=== PATIENT | male | born 1975 | race Hispanic/Latino ===

== ENCOUNTER 2018-10-27 10:56 | Inpatient (IN) | payer OTHER ==
[~2018-10-27] VITALS: Ht 165.1 cm; Wt 175.2 kg
--- NOTE | 2018-10-27 11:01 | NUR ---
WHEELCHAIR TO ER ROOM 13, TO BED. BEDSIDE TRIAGE DONE
[2018-10-27] MEDS ORDERED: METFORMIN HCL1000 MG PO (11:12)
[2018-10-27] MEDS ORDERED: LISINOPRIL10 M1 PO (11:13)
[2018-10-27] MEDS ORDERED: SM ASPIRIN ADUL81 MG PO (11:13)
[2018-10-27] MEDS ORDERED: TRADJENTA5 MG PO (11:15)
[2018-10-27 11:33] LABS: HEMATOCRIT 43.1 % (39.0-50.0); HEMOGLOBIN 13.8 g/dl (14.0-18.0); IMMATURE GRANULOCYTES 0.7 % (0.0-5.0); MEAN CELL VOLUME 85.5 fL CALC (80.0-100.0); MEAN CORPUSCULAR HGB 27.4 pG CALC (26.0-32.0); NEUT# 12.27 thou/uL (1.82-7.42); RED BLOOD COUNT 5.04 mill/uL (4.70-6.10); RED CELL DISTRI WIDTH 13.4 % (11.5-15.5)
[2018-10-27 11:44] LABS: ALKALINE PHOSPHATASE 105 u/l (38-126); ANION GAP 16 (6-22 (CALC)); BILIRUBIN, TOTAL 0.6 mg/dL (0.0-1.4); BUN 19 mg/dL (9-20); BUN/CREATININE RATIO 24 (12-20 (CALC)); CARBON DIOXIDE 27 mmol/l (22-30); CHLORIDE 96 mmol/l (95-108); CREATININE 0.8 mg/dL (0.7-1.3); GFR > 60 ML/MIN (>=60 (CALC)); GFR FOR AFR.AMER. > 60 ML/MIN (>=60 (CALC)); POTASSIUM 3.9 mmol/l (3.5-5.1); SGOT/AST 42 u/l (17-59); SODIUM 136 mmol/l (137-146); TOTAL PROTEIN 8.2 g/dL (6.3-8.2)
--- NOTE | 2018-10-27 11:49 | NUR ---
TEMP RECHECK 104.0 TYMPANIC ENVIRONMENTAL MEASURES IN PROGRESS. IV TYLENOL COMPLETED.IV ABT AND FLUIDS IN PROGRESS. BP 164/72. PT TACHYCARDIC. SATS 98% ON 4L/M VIA NC. RESP EVEN/UNLABORED. PT A&OX3. SKIN MOIST.
--- NOTE | 2018-10-27 13:02 | NUR ---
SECOND LACTIC OBTAINED
--- NOTE | 2018-10-27 14:20 | NUR ---
URINE SPECIMEN COLLECTED. PT ABLE TO STAND AND USE URINAL. PT A&OX3 02 TAPERED TO 2L/M VIA NC. PT SATS 98%. NO SOB DURING ADL. TEMP TRENDING DOWN. VSS.
[2018-10-27 14:37] LABS: URINE BILIRUBIN - DIPSTICK NEGATIVE (NEGATIVE); URINE BLOOD DIPSTICK NEGATIVE (NEGATIVE); URINE COLOR YELLOW; URINE GLUCOSE - DIPSTICK NEGATIVE (NEGATIVE); URINE KETONE NEGATIVE (NEGATIVE); URINE LEUK ESTERASE NEGATIVE (NEGATIVE); URINE NITRITE - DIPSTICK NEGATIVE (Negative); URINE PROTEIN - DIPSTICK 30 mg/dL (NEG-TRACE); URINE SPECIFIC GRAVITY <=1.005
[2018-10-27 14:40] LABS: BARBITURATES NEGATIVE (NEGATIVE); COCAINE NEGATIVE (NEGATIVE); METHADONE NEGATIVE (NEGATIVE); OXCYCODONE NEGATIVE (NEGATIVE); TETRAHYDROCANNABIONOL NEGATIVE (NEGATIVE); TRICYLIC ANTIDEPRESSANTS NEGATIVE (NEGATIVE)
[2018-10-27 14:50] LABS: URINE SQUAMOUS EPITHELIAL CELL FEW EPI/hpf (0-FEW)
--- NOTE | 2018-10-27 15:40 | NUR ---
PT RESTING ON STRETCHER. ALL FLUIDS COMPLETED. PT CONTINUES ON O2 2L/M VIA NC. PT AWARE OF CURRENT POC.
--- NOTE | 2018-10-27 16:42 | NUR ---
REPORT CALLED TO MIRLANDE NURSE ON MEDSURG. PT TO MEDSURG VIA STRETCHER IN NO APPARENT DISTRESS. IV SITES HEALTHY. AFEBRILE. O2 2L/M VIA NC.
--- NOTE | 2018-10-27 16:50 | NUR ---
PT ARRIVED TO MS2 VIA STRETCHER ACCOMPANIED BY ER NURSE AND SISTERS. PT ALERT AND ORIENTED X3, AMBULATED WITH STEADY GAIT TO BED. BP ELEVATED AT THIS TIME, 186/117 TEMP 100.9 AND ACCUCHECK 200. PT RECEIVED IV CONTRAST, PT NIDDM METFORMIN TO BE HELD. ORIENTED PT TO ROOM AND CALL LIGHT, DISCUSSED POC. MD AND AUTO PORTER TO BEDSIDE UPON ARRIVAL. DISCUSSED POC, MD NOTED PT HAS REDNESS AND SWELLING TO L LEG;HOT TO TOUCH, PHOTO OBTAINED CIRCUMFERENCE OF CALF 40CM. DISCUSSED PRN APRESOLINE; CT AND U/S ORDERED. ASSESSMENT COMPLETED, CALL LIGHT IN REACH,CONTINUE TO MONITOR.
[2018-10-27 17:04] VITALS: BP 186/117
[2018-10-27 18:00] VITALS: BP 202/110
--- NOTE | 2018-10-27 18:14 | NUR ---
PT SITTING ON SIDE OF BED RN TO BEDSIDE TO GIVE IV APRESOLINE FOR BP 202/110. MEDICATED WITH TYLENOL WELL, PT VOICES NO NEEDS OR COMPLAINTS AT THIS TIME. CALL LIGHT IN REACH,CONTINUE TO MONITOR.
[2018-10-27 18:51] VITALS: BP 149/90
--- NOTE | 2018-10-27 18:51 | NUR ---
VITALS OBTAINED, TEMP NOW 102. PASSED ON TO ON COMING SHIFT. RN REQUESTS PT HAVE ICE PACKS PLACED AND WILL REEVALUATE, TO NOTIFY MD FOR MORE ORDERS IF NECESSARY.
--- NOTE | 2018-10-27 20:15 | NUR ---
ASSESSMENT COMPLETED; IV SITE PATENT AND SL. PT. DENIES ANY PAIN. LLE WITH REDNESS NOTED AND IS OUTLINED WITH MARKER; WARM TO TOUCH; TEMP 102.[address]S IN PLACE. CALLED AND NOTIFIED DR. HILLS OF TEMP AND OF LAST DOSE OF TYLENOL; ORDER RECEIVED TO GIVE ADDITIONAL DOSE OF TYLENOL IN ONE HOUR AND CONTINUE WITH COLD/ICE PACKS ; PER MD HE DOES NOT WANT TO ORDER ANY NSAIDS R/T KIDNEY FUNCTION. WILL CARRY OUT THESES ORDERS. CALL LIGHT IS IN REACH.
--- NOTE | 2018-10-27 21:40 | NUR ---
CALLED AND SPOKE TO X-RAY TECHGRETEL, IF CT OF LLE WILL GET TONIGHT AND PER HIM HE REPORTS HE WAS TOLD TO DO THIS IN AM.
--- NOTE | 2018-10-27 22:30 | NUR ---
PT. RESTING IN BED ON LEFT SIDE. TEMP DOWN TO 101, ICE PACKS REFILLED AND ROOM TEMP IS COOL; PT. GIVEN INCENTIVE SPIROMETER EARLIER IN SHIFT AND PULLING 1999; GOAL SET TO 2500; INSTRUCTED TO USE 10X'S AN HOUR WHILE AWAKE AND VERBALIZED UNDERSTANDING. SCHED VANCO HUNG AT THIS TIME. ENCOURAGED TO CALL FOR ANY NEEDS. CALL LIGHT IS IN REACH. WILL CONTINUE TO MONITOR.
[2018-10-27 23:53] VITALS: BP 139/81
--- NOTE | 2018-10-27 23:53 | NUR ---
PT. RESTING IN BED ON LEFT SIDE WITH NO DISTRESS NOTED; DENIES NEEDS/PAIN.VS OBTAINED; TEMP NOW 100.3; WILL CONTINUE TO MONITOR. CALL LIGHT IS IN REACH.
[2018-10-28] VITALS (7 sets, daily range): BP systolic 122–200; BP diastolic 77–108
--- NOTE | 2018-10-28 01:00 | NUR ---
MEDICATED FOR FEVER OF 100.7 WITH PRN TYLENOL AND NEW COOL PACKS APPLIED. CALL LIGHT IS IN REACH.
--- NOTE | 2018-10-28 04:01 | NUR ---
B/P 200/98 MANUALLY; MEDICATED WITH ORDERED APRESOLINE; WILL REASSESS; RE COOLED WASHCLOTH TO FOREHEAD FOR FEVER AND ICE PACKS IN PLACE.
--- NOTE | 2018-10-28 05:17 | NUR ---
PT. MEDICATED WITH ORDERED TYLENOL FOR TEMP OF 101.8; NEW ICE PACKS APPLIED; B/P NOW 195/; WILL CONTINUE TO MONITOR.
[2018-10-28 05:28] LABS: HEMOGLOBIN 13.6 g/dl (14.0-18.0); IMMATURE GRANULOCYTES 0.4 % (0.0-5.0); MEAN CELL VOLUME 86.3 fL CALC (80.0-100.0); MEAN CORPUSCULAR HGB 27.3 pG CALC (26.0-32.0); MEAN CORPUSCULAR HGB CONC 31.6 g/L CALC (32.0-36.0); NEUT# 8.02 thou/uL (1.82-7.42); RED BLOOD COUNT 4.98 mill/uL (4.70-6.10); RED CELL DISTRI WIDTH 13.6 % (11.5-15.5)
[2018-10-28 05:48] LABS: ALBUMIN 3.6 g/dL (3.2-5.0); ALKALINE PHOSPHATASE 85 u/l (38-126); AMYLASE 51 u/l (30-110); ANION GAP 15 (6-22 (CALC)); BILIRUBIN, TOTAL 0.6 mg/dL (0.0-1.4); BUN 11 mg/dL (9-20); BUN/CREATININE RATIO 17 (12-20 (CALC)); CARBON DIOXIDE 28 mmol/l (22-30); CHLORIDE 97 mmol/l (95-108); CREATININE 0.6 mg/dL (0.7-1.3); GFR > 60 ML/MIN (>=60 (CALC)); GFR FOR AFR.AMER. > 60 ML/MIN (>=60 (CALC)); LIPASE 112 u/l (23-300); MAGNESIUM 1.2 mg/dL (1.6-2.3); POTASSIUM 3.5 mmol/l (3.5-5.1); SGOT/AST 51 u/l (17-59); SODIUM 136 mmol/l (137-146); TOTAL PROTEIN 7.4 g/dL (6.3-8.2)
--- NOTE | 2018-10-28 06:26 | NUR ---
REASSESSED TEMP AND NOW IS 100.7; REASSESSED B/P AND NOW 176/100, MEDICATED WITH AM LISNOPRIL; PT. DENIES NEEDS. RE-COOLED WASH CLOTH AND ICE PACKS REMAIN IN PLACE.
--- NOTE | 2018-10-28 07:20 | NUR ---
RECEIVED PT IN LOW FOWLERS POSITION, AWAKE. ALERT. ASSESSMENT COMPLETE, SEE SHIFT REVIEW FOR COMPLETE ASSESSMENT. PT TACHYCARDIC/TACHYPNEIC TEMP 102.4. COLD COMPRESSES IN PLACE. PT DENIES ANY PAIN. LEFT LOWER EXTREMITY REDNESS REMAINS WITHOUT INCREASE BEYOND MARKINGS. DISCUSSED PLAN OF CARE. WILL CONTINUE TO MONITOR FREQUENTLY.
--- NOTE | 2018-10-28 08:41 | NUR ---
PT SITTIN ON SIDE OF BED EATING BREAKFAST. DENIES ANY NEEDS. TYLENOL GIVEN FOR TEMP OF 102.4.
--- NOTE | 2018-10-28 09:30 | NUR ---
PT TO XRAY DEPARTMENT VIA WHEELCHAIR.
--- NOTE | 2018-10-28 09:45 | NUR ---
PT RETURNED FROM XRAY DEPT, TOLERATED WELL. TEMP DOWN TO 100.4
--- NOTE | 2018-10-28 09:51 | NUR ---
PRELIMINARY BLOOD CULTURE RESULTS GRAM (+) [facility] CALLED TO , PATIENT IS ALREADY ON VANCOMYCIN 2 GRAMS Q12H NO NEW ORDERS AT THIS TIME.
--- NOTE | 2018-10-28 09:56 | NUR ---
DR HILLS IN, NOTIFIED OF BLOOD CULTURE RESULTS.
--- NOTE | 2018-10-28 11:21 | NUR ---
DR HILLS AT PTS BEDSIDE. DISCUSSED PLAN OF CARE. NEW AREA OF REDNESS NOTED EXTENDING UP TO RIGHT MEDIAL THIGH WHERE PT REPORT PAIN. NEW ORDERS RECEIVED.
--- NOTE | 2018-10-28 12:57 | NUR ---
S: RULA ANN is a 42 M who presents with Left Lower Leg Cellulitis, Comunity Acquired Pneumonia, and Sepsis. He has a history of hypertension and Type 2 Diabetes. All medications in patient's chart were reviewed. O: VS: BP 171/94 mmHg, P 116 BPM, RR 24 Breaths Per Minute,T 101.5 Degrees Fahrenheit W 175.2 kg, HT 65 in, Scr=0.6 mg/dL,CrCl= 245ml/min A: Blood culture pending. P: Vancomycin ordered for pharmacy to dose. Start Vancomycin 2g IV Q12H. Vancomycin trough is drawn before the 4th dose on <10/29/2018 at 1030 >. Vancomycin goal trough is between <15-20 mcg/ml>. Pharmacy will follow and or advise on antibiotics use as needed.
--- NOTE | 2018-10-28 13:31 | NUR ---
PT TO XRAY VIA WHEELCHAIR.
--- NOTE | 2018-10-28 14:00 | NUR ---
PT RETURNED FROM CT.
--- NOTE | 2018-10-28 14:52 | NUR ---
PT COMPLAINTS OF FEELING "COLD" TEMP CHECKED, RESULTS 104.1 DR HILLS NOTIFIED AND NEW ORDERS RECEIVED.
--- NOTE | 2018-10-28 16:00 | NUR ---
TEMP DOWN TO 101.2, PT SWEATING. DENIES ANY NEEDS. WILL CONTINUE TO MONITOR.
--- NOTE | 2018-10-28 19:45 | NUR ---
PT. RESTING IN BED WITH NO DISTRESS NOTED; DENIES NEEDS/PAIN. ASSESSMENT COMPLETED; IV SITE PATENT AND SL X2. ENCOURAGED USE OF INCENTIVE SPIROMETER; VERBALIZES UNDERSTANDING. REDNESS TO LLE NOTED AND OUTLINE; CIRCUMFERENCE OF LLE IS 41CM; PULSES PRESENT TO ALL EXTREMETIES; ENCOURAGED TO CALL FOR ANY NEEDS. CALL LIGHT IS IN REACH; WILL CONTINUE TO MONITOR.
--- NOTE | 2018-10-28 23:10 | NUR ---
PT. RESTING IN BED WITH EYES CLOSED; AROUSES EASILY; VSS; NO DISTRESS NOTED; ENCOURAGED TO CALL FOR ANY NEEDS. CALL LIGHT IS IN REACH.
--- NOTE | 2018-10-29 00:55 | NUR ---
IV SITE PATENT AND FLUSHED WITH NS. TEMP 98.6; WILL CONTINUE TO MONITOR. PT. DENIES NEEDS; CALL LIGHT IS IN REACH.
[2018-10-29 04:00] VITALS: BP 210/106
--- NOTE | 2018-10-29 04:01 | NUR ---
TEMP NOW 103.5 AND B/P 210/106 MANUALLY; MEDICATED WITH ORDERED TYLENOL,MOTRIN, AND APRESOLINE. PT'S BREATHING IS SHALLOW AND PANTING LIKE; ENCOURAGED TO DEEP BREATHE SPO2 IS 87%; O2 INCREASED TO 3LITERS/MIN PER NC AND SPO2 UP TO 92%; WILL CONTINUE TO MONITOR. COOL PACKS APPLIED THROUGHOUT BODY WELL. CALL LIGHT IS IN REACH. WILL REASSESS VS.
--- NOTE | 2018-10-29 04:38 | NUR ---
CALLED AND SPOKE TO DR. PITTMAN TO SEE FOR ORDERS FOR PT. PER MD HE FEELS PRIMARY MD SHOULD BE NOTIFIED AND CALLED FOR ORDERS R/T PT. HAVING NUMEROUS THINGS GOING ON.
--- NOTE | 2018-10-29 04:40 | NUR ---
CALLED AND SPOKE TO DR. HILLS NOTIFIED HIM OF ALL PT'S VS WELL RR BEING 40'S-50'S AT THIS TIME AND THAT PT. IS ANXIOUS. ALSO NOTIFIED HIM OF ALL MEDICATIONS GIVEN THUS FAR; ALSO OF O2 BEING INCREASED TO 3LITERS/MIN PER NC. NEW ORDERS RECIEVED FOR ATIVAN X1 DOSE AND TO BE CARRIED OUT.
[2018-10-29 05:20] VITALS: BP 146/89
--- NOTE | 2018-10-29 05:20 | NUR ---
REASSESSED TEMP AND NOW IS 102.7, BREATHING IS SLIGHTLY SLOWER AND REPORTS IT IS A LITTLE EASIER TO BREATHE POST ATIVAN ADMINISTRATION. B/P REASSESSED AND NOW 146/89. PT. ASSISTED INTO SHOWER AND LINENS CHANGED. WILL CONTINUE TO MONITOR.
[2018-10-29 05:22] LABS: HEMATOCRIT 46.3 % (39.0-50.0); HEMOGLOBIN 14.6 g/dl (14.0-18.0); IMMATURE GRANULOCYTES 0.9 % (0.0-5.0); MEAN CELL VOLUME 85.9 fL CALC (80.0-100.0); MEAN CORPUSCULAR HGB 27.1 pG CALC (26.0-32.0); MEAN CORPUSCULAR HGB CONC 31.5 g/L CALC (32.0-36.0); NEUT# 13.39 thou/uL (1.82-7.42); RED BLOOD COUNT 5.39 mill/uL (4.70-6.10); RED CELL DISTRI WIDTH 13.7 % (11.5-15.5)
[2018-10-29 05:49] LABS: ALBUMIN 3.9 g/dL (3.2-5.0); ALKALINE PHOSPHATASE 104 u/l (38-126); ANION GAP 19 (6-22 (CALC)); BILIRUBIN, TOTAL 0.8 mg/dL (0.0-1.4); BUN 15 mg/dL (9-20); BUN/CREATININE RATIO 20 (12-20 (CALC)); CARBON DIOXIDE 25 mmol/l (22-30); CHLORIDE 96 mmol/l (95-108); CREATININE 0.8 mg/dL (0.7-1.3); GFR > 60 ML/MIN (>=60 (CALC)); GFR FOR AFR.AMER. > 60 ML/MIN (>=60 (CALC)); MAGNESIUM 1.2 mg/dL (1.6-2.3); SGOT/AST 49 u/l (17-59); SODIUM 136 mmol/l (137-146); TOTAL PROTEIN 7.9 g/dL (6.3-8.2)
--- NOTE | 2018-10-29 06:10 | NUR ---
REASSESSED TEMP AND NOW DOWN TO 100.3. ENCOURAGED TO USE INCENTIVE SPRIOMETER. PT. UP TO CHAIR, NOW USING I/S. CALL LIGHT IS IN REACH; WILL CONTINUE TO MONITOR.
[2018-10-29 06:21] LABS: POTASSIUM 4.3 mmol/l (3.5-5.1)
--- NOTE | 2018-10-29 07:30 | NUR ---
RECEIVED PT SITTING IN CHAIR AT BEDSIDE. PT WITH EYES CLOSED. AROUSES TO TACTILE STIMULI. SKIN COOL, PT DIAPHORETIC. PT R/R 40, SHALLOW. ASSESSMENT COMPLETE. RACHID BREATH SOUND DIMINISHED WITH FAINT CRACKLES RACHID BASES. 02 AT 3L PER NC, SAT'S 97%. PT INSTRUCTED ON USE OF IS AND ENCOURAGED TO USE. TEMP AT THIS TIME DOWN TO 98.7. PT DENIES NEEDS. WILL CONTINUE TO MONITOR.
[2018-10-29 08:00] VITALS: BP 124/80
--- NOTE | 2018-10-29 08:00 | NUR ---
INSULIN GIVEN ORDERED. PT SITTING IN CHAIR AT BEDSIDE EATING BREAKFAST.
--- NOTE | 2018-10-29 09:30 | NUR ---
PT AMBULATES TO BATHROOM PER SELF, HAD BM. STATES HE FEELS MUCH BETTER AT THIS TIME THAN LAST HS. WILL CONTINUE TO MONITOR. DENIES ANY NEEDS.
--- NOTE | 2018-10-29 12:06 | NUR ---
DR HILLS IN TO SEE PT, DISCUSSED PLAN OF CARE. NEW ORDERS RECEIVED.
--- NOTE | 2018-10-29 14:12 | NUR ---
PT SITTING IN RECLINER CHAIR AT BEDSIDE. DENIES ANY NEEDS. WILL CONTINUE TO MONITOR.
--- NOTE | 2018-10-29 14:52 | NUR ---
IN TO CHECK ON PATIENT, PT TEMP 101.1. MEDICATED WITH TYLENOL AND MOTRIN.
[2018-10-29 16:00] VITALS: BP 137/81
--- NOTE | 2018-10-29 16:03 | NUR ---
PT SITTING IN RECLINER CHAIR AT BEDSIDE. DENIES ANY NEEDS. TAKING PO FLUIDS WELL. MONITORING TEMP FREQUENTLY.
--- NOTE | 2018-10-29 17:46 | NUR ---
PT AMBULATING HALLS WITH SISTER.
--- NOTE | 2018-10-29 19:15 | NUR ---
PT SITTING IN RECLINER W/FAMILY AT SIDE. PT DENIES ANY NEEDS. REPORT HAS BEEN RECEIVED FROM DAY NURSE. PT ENCOURAGED TO CALL IF ANY NEEDS ARISE. CALL LIGHT AT SIDE.
[2018-10-29 19:35] VITALS: BP 124/79
--- NOTE | 2018-10-29 22:30 | NUR ---
pt assessed and medicated at this time. pt is sitting upright in recliner sleeping, but awoke to my voice. pt lung sounds wheezing in lower lobes/diminished throughout w/active bowel sounds, ble edematous and reddened. iv antibiotic therapy running to 20rfa/site appears healthy. pt denies any other needs at this time. call light next to hand and pt encouraged to call as needs arise.
--- NOTE | 2018-10-29 23:34 | NUR ---
PT IS STILL SITTING IN RECLINER ASLEEP. NO S/O DISTRESS NOTED. AUDIBLE SNORING OBSERVED. CALL LIGHT IS AT SIDE.
[2018-10-30 03:37] VITALS: BP 141/93
--- NOTE | 2018-10-30 04:57 | NUR ---
PT MEDICATED W/TYLENOL AND IV ANTIBIOITIC THERAPY. PT DENIES ANY OTHER NEEDS, PT LEFT IN BED IN LOW FOWLERS POSITION SLEEPING.
--- NOTE | 2018-10-30 07:00 | NUR ---
SHIFT CHANGE REPORT, PT AWAKE ALERT AND ORIENTED SITTING UP IN RECLINER, NO C/O DISCOMFORT BUT SHALLOW BREATHING OBSERVED, O2 @ 2L VIA NC IN PLACE, MEAL SERVED, WILL CONTINUE TO MONITOR.
[2018-10-30 08:25] VITALS: BP 157/93
[2018-10-30 16:00] VITALS: BP 150/71
--- NOTE | 2018-10-30 16:00 | NUR ---
RELAXING IN RECLINER, ALL NEEDS ADDRESSED, FAMILY MEMBERS VISITING.
--- NOTE | 2018-10-30 16:00 | NUR ---
AMBULATED HALLWAYS WITHOUT O2, SATS DROPPED TO 89 DURING AMBULATION THEN RAMAINED @ 95% ON R/A WHILE RESTING. ENCOURAGED TO AMBULATE HALWAYS MORE OFTEN, WILL CONTINUE TO MONITOR.
[2018-10-30 19:41] VITALS: BP 143/91
--- NOTE | 2018-10-30 20:10 | NUR ---
PT. AMBULATING DOWN THE HALLWAYS WITH FAMILY MEMBER.
--- NOTE | 2018-10-30 21:25 | NUR ---
ASSESSMENT COMPLETED; O2 INFUSING PER NC PER ORDER; BREATHING LABORED; TEMP 99.5 AT THIS TIME; WILL CONTINUE TO MONITOR. ENCOURAGED TO USE INCENTIVE SPIROMETER AND IS WITHIN REACH. SCHED MEDS GIVEN. UPDATED WITH POC. NEW IV STARTED TO LEFT HAND X1 ATTEMPT, #22 GAUGE. IV SITE TO RAC AND LFA ARE REMOVED AND CATHETER TIPS ARE INTACT. PT. ENCOURAGED TO CALL FOR ANY NEEDS. CALL LIGHT IS IN REACH. WILL CONTINUE TO MONITOR.
[2018-10-30 23:46] VITALS: BP 160/119
--- NOTE | 2018-10-30 23:55 | NUR ---
PT. MEDICATED FOR TEMP OF 101.3 AND B/P 160/119 WITH TYLENOL, MOTIRN, AND APRESOLINE IV, PER ORDER; WILL REASSESS; PT. REPORT SMALL HARD BM, PRUNE JUICE PROVIDED.
--- NOTE | 2018-10-31 01:58 | NUR ---
B/P REASSESSED AND NOW 132/55 AND TEMP DOWN TO 99.6; WILL CONTINUE TO MONITOR.
[2018-10-31 01:59] VITALS: BP 132/55
[2018-10-31 04:25] VITALS: BP 155/87
[2018-10-31 05:14] LABS: MEAN CELL VOLUME 83.7 fL CALC (80.0-100.0); MEAN CORPUSCULAR HGB 27.2 pG CALC (26.0-32.0); MEAN CORPUSCULAR HGB CONC 32.4 g/L CALC (32.0-36.0); NEUT# 5.99 thou/uL (1.82-7.42); RED BLOOD COUNT 4.49 mill/uL (4.70-6.10); RED CELL DISTRI WIDTH 13.4 % (11.5-15.5)
[2018-10-31 05:20] LABS: HEMATOCRIT 37.6 % (39.0-50.0); HEMOGLOBIN 12.2 g/dl (14.0-18.0)
[2018-10-31 05:42] LABS: ALBUMIN 3.4 g/dL (3.2-5.0); ALKALINE PHOSPHATASE 88 u/l (38-126); ANION GAP 15 (6-22 (CALC)); BILIRUBIN, TOTAL 0.5 mg/dL (0.0-1.4); BUN 25 mg/dL (9-20); BUN/CREATININE RATIO 30 (12-20 (CALC)); CARBON DIOXIDE 25 mmol/l (22-30); CHLORIDE 95 mmol/l (95-108); CREATININE 0.8 mg/dL (0.7-1.3); GFR > 60 ML/MIN (>=60 (CALC)); GFR FOR AFR.AMER. > 60 ML/MIN (>=60 (CALC)); POTASSIUM 3.6 mmol/l (3.5-5.1); SGOT/AST 30 u/l (17-59); SODIUM 131 mmol/l (137-146); TOTAL PROTEIN 6.9 g/dL (6.3-8.2)
[2018-10-31 05:43] LABS: MAGNESIUM 1.6 mg/dL (1.6-2.3)
[2018-10-31 08:41] VITALS: BP 162/101
--- NOTE | 2018-10-31 08:49 | NUR ---
PT SITTING UP IN CHAIR EATING BREAKFAST. NO RESP. DISTRESS NOTED. ASSESSMENT COMPLETED. TEMP 97.3. BLOOD PRESSURE ELEVATED 162/101. AM MED GIVEN PER MD ORDERS. WILL CONTINUE TO MONITOR PT CONDITION. CALL LIGHT WITHIN REACH.
--- NOTE | 2018-10-31 13:41 | NUR ---
MEDICATED WITH TYLENOL 650MG PO FOR TEMP 100.4. PT SITTING UP IN CHAIR VISITING WITH SISTER. NO COMPLAINTS VOICED. NO RESP. DISTRESS NOTED. WILL CONTINUE TO MONITOR, CALL LIGHT WITHIN REACH.
[2018-10-31 16:16] VITALS: BP 164/90
--- NOTE | 2018-10-31 17:05 | NUR ---
PT HAS FAMILY VISITING. UP IN CHAIR. NO CHANGE IN ASSESSMENT. NO RESP. DISTRESS. WILL CONTINUE TO MONITOR. CALL LIGHT WITHIN REACH.
--- NOTE | 2018-10-31 18:55 | NUR ---
REPORT RECEIVED FROM DAY NURSE. PT IS IN RESTROOM AT THIS TIME. I COMMUNICATED THROUGH DOOR TO PT WHO CONFIRMED HE IS OKAY AND DENIED NEED OF ANY ASSISTANCE. WILL FOLLOW-UP W/ASSESSMENT AND MEDICATIONS ORDERS PROVIDE.
[2018-10-31 19:56] VITALS: BP 170/84
--- NOTE | 2018-10-31 20:08 | NUR ---
PT MEDICATED FOR BP 170/84, HR 98. PT WAS SLEEPING, BUT AWOKE TO MY VOICE AND RESPONDED APPROPRIATELY. PT QUICKLY RETURNED TO SLEEP PRIOR TO MY LEAVING ROOM. CALL LIGHT IS W/IN REACH.
--- NOTE | 2018-10-31 22:00 | NUR ---
PT JUST ARRIVED BACK TO FLOOR. WILL REASSESS BP AND ADMINISTER MEDICATIONS. FAMILY IN W/PT AT THIS TIME.
--- NOTE | 2018-10-31 22:17 | NUR ---
PT IN RESTROOM, DENIES ANY ASSISTANCE NEEDED. WILL FOLLOW-UP WITH MEDICATIONS.
[2018-10-31 22:36] VITALS: BP 186/81
--- NOTE | 2018-10-31 22:37 | NUR ---
PT MEDICATED ORDERS PROVIDE AND FOR TEMP OF 100.1 NO S/O DISTRESS NOTED. CALL LIGHT AT SIDE.
[2018-11-01] VITALS (7 sets, daily range): BP systolic 114–173; BP diastolic 70–94
--- NOTE | 2018-11-01 00:25 | NUR ---
PT IS SLEEPING, NO S/O DISTRESS NOTED. CALL LIGHT AT SIDE.
[2018-11-01 04:36] LABS: HEMATOCRIT 37.5 % (39.0-50.0); HEMOGLOBIN 12.2 g/dl (14.0-18.0); IMMATURE GRANULOCYTES 0.9 % (0.0-5.0); MEAN CELL VOLUME 83.5 fL CALC (80.0-100.0); MEAN CORPUSCULAR HGB 27.2 pG CALC (26.0-32.0); MEAN CORPUSCULAR HGB CONC 32.5 g/L CALC (32.0-36.0); NEUT# 4.65 thou/uL (1.82-7.42); RED BLOOD COUNT 4.49 mill/uL (4.70-6.10); RED CELL DISTRI WIDTH 13.2 % (11.5-15.5)
[2018-11-01 04:52] LABS: ALBUMIN 3.3 g/dL (3.2-5.0); ALKALINE PHOSPHATASE 84 u/l (38-126); ANION GAP 13 (6-22 (CALC)); BILIRUBIN, TOTAL 0.5 mg/dL (0.0-1.4); BUN 16 mg/dL (9-20); BUN/CREATININE RATIO 24 (12-20 (CALC)); CARBON DIOXIDE 29 mmol/l (22-30); CHLORIDE 98 mmol/l (95-108); CREATININE 0.7 mg/dL (0.7-1.3); GFR > 60 ML/MIN (>=60 (CALC)); GFR FOR AFR.AMER. > 60 ML/MIN (>=60 (CALC)); MAGNESIUM 1.5 mg/dL (1.6-2.3); POTASSIUM 3.8 mmol/l (3.5-5.1); SGOT/AST 30 u/l (17-59); SODIUM 136 mmol/l (137-146); TOTAL PROTEIN 6.8 g/dL (6.3-8.2)
--- NOTE | 2018-11-01 05:13 | NUR ---
PT MEDICATED FOR BP AND IV ANTIBIOTIC THERAPY AT THIS TIME. NO S/O DISTRESS NOTED. PT DENIES ANY NEEDS. PT AMBULATED TO RESTROOM AND BACK TO BED. WILL CONTINUE TO MONITOR AND PT ENCOURAGED TO CALL IF ANY ASSISTANCE IS NEEDED.
--- NOTE | 2018-11-01 06:55 | NUR ---
REPORT RECEIVED FROM NEELIMA COLE; PT APPEARS TO BE SLEEPING; RESP EVEN AND UNLABORED; CALL JEAN IN REACH.
--- NOTE | 2018-11-01 07:35 | NUR ---
PT SITTING UP IN RECLINER; VITALS OBTAINED; NO FEVER; ASSESSMENT COMPLETED; A/O X3; 02@2L NC; AMBULATORY IN ROOM; NO S/S OF DISTRESS NTOED; IV FLUSHED WELL; SITE APPEARS HEALTHY; PT VOICE NO CONCERNS; ENCOURAGE USE OF IS; VERBALIZE UNDERSTANDING; NOW EATING BREAKFAST;
--- NOTE | 2018-11-01 10:04 | NUR ---
PT TOOK A SHOWER; SITTING UP IN RECLINER; FAMILY AT BEDSIDE; PT DENIES ANY NEEDS.
--- NOTE | 2018-11-01 10:56 | NUR ---
PT APPEARS SLEEPY; 02@2L NC; VITALS OBTAINED, STABLE, NO FEVER; MEDICATED PER EMAR; FAMILY AT BEDSIDE; VOICE NO CONCERNS; CALL JEAN IN REACH.
--- NOTE | 2018-11-01 11:23 | NUR ---
PT RESTING IN BED WITH EYES CLOSED. NO RESPIRATORY DISTRESS NOTED. CALL LIGHT WITHIN REACH. WILL CONTINUE TO MONITOR.
--- NOTE | 2018-11-01 11:35 | NUR ---
PT REMAIN SITTING UP IN RECLINER; AMBULATORY IN ROOM; DR HILLS AT BEDSIDE TO DISCUSS POC; LUNCH AT BEDSIDE. PT VOICE NO CONCERNS;
--- NOTE | 2018-11-01 15:38 | NUR ---
PT APPEARS TO BE SLEEPING IN THE RECLINER WITH LEGS ELEVATED; ENCOURAGE PT TO WALK THE HALLS, PT DECLINE, STATES "I FEEL SLEEPY" 02@2L NC IN PLACE; RESP EVEN AND UNLABORED AT THE MOMENT; VOICE NO CONCERNS; WILL CONTINUE TO MONITOR.
--- NOTE | 2018-11-01 19:05 | NUR ---
REPORT FROM IZA ULRICH. PT SITTING UP IN CHAIR AT BEDSIDE. ALERT AND ORIENTED. PT DENIES ANY PAIN OR DISCOMFORT. NO S/S OF DISTRESS NOTED. IV SITE APPEARS HEALTHY. DISCUSSED POC. PT VERBALIZED UNDERSTANDING. CALL LIGHT WITHIN REACH. WILL CONTINUE TO MONITOR.
--- NOTE | 2018-11-01 23:23 | NUR ---
PT RESTING IN BED WITH EYES CLOSED. NO RESPIRATORY DISTRESS NOTED. CALL LIGHT WITHIN REACH. WILL CONTINUE TO MONITOR.
[2018-11-02 00:11] VITALS: BP 149/90
--- NOTE | 2018-11-02 03:16 | NUR ---
PT RESTING IN BED WITH EYES CLOSED. O2 @ 2L/M. NO RESPIRATORY DISTRESS NOTED. CALL LIGHT WITHIN REACH. WILL CONTINUE TO MONITOR.
[2018-11-02 04:43] VITALS: BP 141/83
[2018-11-02 07:53] VITALS: BP 152/99
--- NOTE | 2018-11-02 07:59 | NUR ---
REPORT WAS RECEIVED FROM VARUN. PT IS SITTING IN RECLINER. ASSESSMENT DONE. PT IS A&O X3. LLE MILD REDNESS NOTED. PT DENIES PAIN AT THIS TIME. O2 AT 2L VIA NC. PT DENIES NEEDS AT THIS TIME. CALL LIGHT IN REACH.
--- NOTE | 2018-11-02 11:30 | NUR ---
PT IS RESTING IN RECLINER. PO FLUIDS PROVIDED. PT STATED HE HAS BEEN USING THE I.S. PT DENIES ANY OTHER NEEDS AT THIS TIME. CALL LIGHT IN REACH.
--- NOTE | 2018-11-02 16:20 | NUR ---
PT IS SITTING IN RECLINER. SMALL BLISTER NOTED ON LLE. PT DENIES ANY NEEDS AT THIS TIME. CALL LIGHT IN REACH.
[2018-11-02 17:23] VITALS: BP 175/92
[2018-11-02 18:00] VITALS: BP 163/99
[2018-11-02 19:50] VITALS: BP 169/93
--- NOTE | 2018-11-02 20:30 | NUR ---
PT MEDICATED AND ASSESSED. LUNG SOUNDS ARE CLEAR, ABD DIST FIRM W/ACTIVE BOWEL SOUNDS. LOCX4. SISTER IS AT BEDSIDE. LLE REDDENED W/SMALL BLISTER TO AREA. PT MEDICATED FOR ELEVATED BP W/PM MEDS. PT DENIES ANY OTHER NEEDS, WATER PROVIDED. PT IS NOW AMBULATING HALLWAY W/SISTER.
--- NOTE | 2018-11-02 22:06 | NUR ---
PT MEDICATED W/IV ANTIBIOTIC THERAPY. PT WAS SLEEPING, AWOKE TO MY VOICE. NO S/O DISTRESS NOTED. CALL LIGHT AT SIDE.
[2018-11-03 00:20] VITALS: BP 146/78
--- NOTE | 2018-11-03 01:30 | NUR ---
PT IS SLEEPING AT THIS TIME. NO S/O DISTRESS NOTED. CALL LIGHT AT BEDSIDE.
[2018-11-03 04:40] VITALS: BP 153/95
--- NOTE | 2018-11-03 05:08 | NUR ---
PT MEDICATED W/ANTIBIOTIC THERAPY ORDERS PROVIDE. PT WAS SLEEPING AND AWOKE TO MY VOICE. CALL LIGHT AT SIDE.
[2018-11-03 05:23] LABS: HEMATOCRIT 37.8 % (39.0-50.0); IMMATURE GRANULOCYTES 1.2 % (0.0-5.0); MEAN CELL VOLUME 85.7 fL CALC (80.0-100.0); MEAN CORPUSCULAR HGB 27.2 pG CALC (26.0-32.0); MEAN CORPUSCULAR HGB CONC 31.7 g/L CALC (32.0-36.0); NEUT# 3.8 thou/uL (1.82-7.42); RED BLOOD COUNT 4.41 mill/uL (4.70-6.10); RED CELL DISTRI WIDTH 13.4 % (11.5-15.5)
[2018-11-03 05:40] LABS: ANION GAP 11 (6-22 (CALC)); BUN 10 mg/dL (9-20); BUN/CREATININE RATIO 15 (12-20 (CALC)); CARBON DIOXIDE 30 mmol/l (22-30); CHLORIDE 101 mmol/l (95-108); CREATININE 0.7 mg/dL (0.7-1.3); GFR > 60 ML/MIN (>=60 (CALC)); GFR FOR AFR.AMER. > 60 ML/MIN (>=60 (CALC)); MAGNESIUM 1.4 mg/dL (1.6-2.3); POTASSIUM 3.9 mmol/l (3.5-5.1); SODIUM 138 mmol/l (137-146)
[2018-11-03 07:32] VITALS: BP 157/98
[2018-11-03 07:33] VITALS: BP 157/98
--- NOTE | 2018-11-03 07:50 | NUR ---
REPORT WAS RECEIVED FROM DOUGLAS. ASSESSMENT DONE. PT IS SITTING IN THE SIDE OF THE BED. PT IS A&O X3. PT DENIES PAIN AT THIS TIME. LLE MILD REDDNESS NOTED WITH SMALL BLISTER PICTURE TAKEN. PT DENIES ANY NEEDS AT THIS TIME. CALL LIGHT IN REACH.
--- NOTE | 2018-11-03 11:15 | NUR ---
PT IS SLEEPING IN THE RECLINER WITH LEGS ELEVATED. NO S/S OF DISTRESS NOTED. CALL LIGHT IN REACH.
[2018-11-03] MEDS ORDERED: COREG12.5 MG PO (13:41)
[2018-11-03] MEDS ORDERED: LISINOPRIL20 M1 PO (13:41)
[2018-11-03] MEDS ORDERED: FLORASTOR250 M1 PO (13:41)
[2018-11-03] MEDS ORDERED: CLINDAMYCIN300 M1 PO (13:41)
[2018-11-03] MEDS ORDERED: ROCEPHIN 2 GM2 GM IV (13:41)
--- NOTE | 2018-11-03 15:33 | NUR ---
Discharge instructions given. Patient verbalizes understanding of same. Discharged in stable condition via Wheelchair to Home with staff. All belongings sent with pt.
== END 2018-11-03 15:33 | disposition home or self-care (01) | DRG 871 ==
LOC: ED 10:56 → ED-I 15:31 → ED 16:05 → MS2 16:06
PROVIDERS: Emergency Medicine; Nurse Practitioner Family; ADMIT Internal Medicine Nephrology; ATTEND Internal Medicine Nephrology
DX: A40.0 Sepsis due to streptococcus, group A (principal); J18.9 Pneumonia, unspecified organism; J96.01 Acute respiratory failure with hypoxia; L03.116 Cellulitis of left lower limb; Z68.44 Body mass index [BMI] 60.0-69.9, adult; R65.20 Severe sepsis without septic shock; I16.0 Hypertensive urgency; I10 Essential (primary) hypertension; E11.9 Type 2 diabetes mellitus without complications; J98.4 Other disorders of lung; E66.01 Morbid (severe) obesity due to excess calories; G47.33 Obstructive sleep apnea (adult) (pediatric); Z79.84 Long term (current) use of oral hypoglycemic drugs
CPT/HCPCS: J0131; J1650; J2060; Q9967

== ENCOUNTER 2019-06-30 18:48 | Observation (INO) | payer OTHER ==
[~2019-06-30] VITALS: Ht 165.1 cm; Wt 150.0 kg
[~2019-06-30 18:48] MED LIST: CLINDAMYCIN300 M1 PO; COREG12.5 MG PO; FLORASTOR250 M1 PO; LISINOPRIL10 M1 PO; LISINOPRIL20 M1 PO; METFORMIN HCL1000 MG PO; ROCEPHIN 2 GM2 GM IV; SM ASPIRIN ADUL81 MG PO; TRADJENTA5 MG PO
[2019-06-30 20:22] LABS: HEMATOCRIT 43.7 % (39.0-50.0); HEMOGLOBIN 13.4 g/dl (14.0-18.0); IMMATURE GRANULOCYTES 0.5 % (0.0-5.0); MEAN CELL VOLUME 85.2 fL CALC (80.0-100.0); MEAN CORPUSCULAR HGB 26.1 pG CALC (26.0-32.0); MEAN CORPUSCULAR HGB CONC 30.7 g/L CALC (32.0-36.0); NEUT# 8.64 thou/uL (1.82-7.42); RED BLOOD COUNT 5.13 mill/uL (4.70-6.10)
[2019-06-30 20:43] LABS: ALBUMIN 3.9 g/dL (3.2-5.0); ALKALINE PHOSPHATASE 107 u/l (38-126); ANION GAP 11 (6-22 (CALC)); BILIRUBIN, TOTAL 0.5 mg/dL (0.0-1.4); BUN 14 mg/dL (9-20); BUN/CREATININE RATIO 19 (12-20 (CALC)); CARBON DIOXIDE 31 mmol/l (22-30); CHLORIDE 97 mmol/l (95-108); CREATININE 0.7 mg/dL (0.7-1.3); GFR > 60 ML/MIN (>=60 (CALC)); GFR FOR AFR.AMER. > 60 ML/MIN (>=60 (CALC)); POTASSIUM 3.6 mmol/l (3.5-5.1); SGOT/AST 25 u/l (17-59); SODIUM 136 mmol/l (137-146); TOTAL PROTEIN 7.9 g/dL (6.3-8.2)
[2019-06-30] MEDS ORDERED: CARVEDILOL12.5 MG PO (20:58)
[2019-06-30] MEDS ORDERED: INVOKANA300 MG PO (20:58)
[2019-06-30] MEDS ORDERED: HYZAAR1 TA2 PO (20:59)
[2019-06-30] MEDS ORDERED: ASPIRIN 8181 MG PO (20:59)
[2019-06-30 22:47] VITALS: BP 133/78
[2019-07-01] VITALS (9 sets, daily range): BP systolic 133–177; BP diastolic 8–104
[2019-07-02 00:11] VITALS: BP 129/79
[2019-07-02 05:04] VITALS: BP 177/94
[2019-07-02 05:52] VITALS: BP 169/90
[2019-07-02 07:44] VITALS: BP 176/110
[2019-07-02 11:10] VITALS: BP 151/83
[2019-07-02] MEDS ORDERED: DOXYCYCL HYC100 MG PO (11:40)
[2019-07-02] MEDS ORDERED: AMOX/K CLAV875 M1 PO (11:40)
[2019-07-02] MEDS ORDERED: PERCOCET 5/325M1 TAB PO (11:41)
== END 2019-07-02 13:40 | disposition home or self-care (01) | DRG 580 ==
LOC: ED 18:48 → ED-I 19:40 → ED 22:17 → MS2 22:18
PROVIDERS: ADMIT Internal Medicine; ATTEND Internal Medicine
PROC: 0J980ZZ Drainage of Abdomen Subcutaneous Tissue and Fascia, Open Approach (ICD-10-PCS; principal; 2019-07-01)
DX: L02.211 Cutaneous abscess of abdominal wall (principal); Z68.43 Body mass index [BMI] 50.0-59.9, adult; I10 Essential (primary) hypertension; E11.9 Type 2 diabetes mellitus without complications; E66.9 Obesity, unspecified; B96.89 Other specified bacterial agents as the cause of diseases classified elsewhere; Z79.84 Long term (current) use of oral hypoglycemic drugs
CPT/HCPCS: G0378; Q9967

== ENCOUNTER 2020-06-11 10:37 | Inpatient (IN) | payer OTHER ==
[~2020-06-11] VITALS: Ht 165.1 cm; Wt 183.0 kg
[~2020-06-11 10:37] MED LIST changes: +AMOX/K CLAV875 M1 PO; +ASPIRIN 8181 MG PO; +CARVEDILOL12.5 MG PO; +DOXYCYCL HYC100 MG PO; +HYZAAR1 TA2 PO; +INVOKANA300 MG PO; +PERCOCET 5/325M1 TAB PO
[2020-06-11 11:06] VITALS: BP 174/100
--- NOTE | 2020-06-11 11:30 | NUR ---
PT CARE RESUMED BY THIS ADVERTISING LAYOUT WORKER. PT A DIRECT ADMIT. A&O X3. O2 VIA NC @3L IN PLACE, PT DENIES HOME USE OF OXYGEN. CLEAR/DIMINISHED BREATH SOUNDS HEARD UPON AUSCULTATION. GENERALIZED EDEMA NOTED, PITTING EDEMA TO BLE AND BILATERAL FEET +2. TELE BOX # [id number] WITH INITIAL READING AT SR 90. ABD DISTENDED AND FIRM, PT REPORTS THIS IS NORMAL. BM REPORTED YESTERDAY. PT REPORTS SWELLING TO SCROTUM THAT HAS IMPROVED THE LAST COUPLE OF DAYS. EDEMA NOTED. ASSESSMENT COMPLETED. DISCUSSED POC. ORIENTED PT TO ROOM. CALL LIGHT LEFT WITHIN REACH.
[2020-06-11 11:49] LABS: HEMATOCRIT 48.2 % (39.0-50.0); HEMOGLOBIN 13.8 g/dl (14.0-18.0); IMMATURE GRANULOCYTES 0.4 % (0.0-5.0); MEAN CELL VOLUME 85.9 fL CALC (80.0-100.0); MEAN CORPUSCULAR HGB 24.6 pG CALC (26.0-32.0); MEAN CORPUSCULAR HGB CONC 28.6 g/dL CAL (32.0-36.0); NEUT# 6.02 thou/uL (1.82-7.42); RED BLOOD COUNT 5.61 mill/uL (4.70-6.10); RED CELL DISTRI WIDTH 15.5 % (11.5-15.5)
[2020-06-11 12:43] LABS: ALBUMIN 3.8 g/dL (3.2-5.0); ALKALINE PHOSPHATASE 71 u/l (38-126); ANION GAP 10 (6-22 (CALC)); BILIRUBIN, TOTAL 0.3 mg/dL (0.0-1.4); BUN 16 mg/dL (9-20); BUN/CREATININE RATIO 22 (12-20 (CALC)); CARBON DIOXIDE 37 mmol/l (22-30); CHLORIDE 94 mmol/l (95-108); CREATININE 0.7 mg/dL (0.7-1.3); GFR > 60 ML/MIN (>=60 (CALC)); GFR FOR AFR.AMER. > 60 ML/MIN (>=60 (CALC)); POTASSIUM 3.4 mmol/l (3.5-5.1); SGOT/AST 27 u/l (17-59); SODIUM 137 mmol/l (137-146); TOTAL PROTEIN 8.1 g/dL (6.3-8.2)
[2020-06-11 14:55] VITALS: BP 167/96
[2020-06-11] MEDS ORDERED: NYSTATI1 TOP (15:47)
[2020-06-11] MEDS ORDERED: ZYRTEC10 MG PO (15:48)
[2020-06-11] MEDS ORDERED: FLONASE AL50 MCG/AC1 (15:59)
[2020-06-11] MEDS ORDERED: JARDIANCE25 MG PO (16:04)
[2020-06-11] MEDS ORDERED: LASIX 40 MG TAB40 MG PO (16:07)
[2020-06-11] MEDS ORDERED: VOLTAREN1%GEL TOP (16:07)
[2020-06-11 17:33] LABS: URINE BILIRUBIN - DIPSTICK NEGATIVE (NEGATIVE); URINE BLOOD DIPSTICK NEGATIVE (NEGATIVE); URINE CLARITY CLEAR; URINE COLOR YELLOW; URINE GLUCOSE - DIPSTICK >=1000 mg/dL (NEGATIVE); URINE KETONE NEGATIVE (NEGATIVE); URINE LEUK ESTERASE NEGATIVE (Negative); URINE NITRITE - DIPSTICK NEGATIVE (Negative); URINE PH 5.5 (4.5-8.0); URINE PROTEIN - DIPSTICK 100 mg/dL (NEG-TRACE); URINE SPECIFIC GRAVITY 1.025; URINE UROBILINOGEN - DIPSTICK 0.2 E.U./dL (0.2)
--- NOTE | 2020-06-11 17:58 | NUR ---
PT SITTING IN BED. NO DISTRESS OR NEEDS AT THIS TIME. CALL LIGHT WITHIN REACH.
[2020-06-11 19:20] VITALS: BP 179/88
--- NOTE | 2020-06-11 21:14 | NUR ---
RECEIVED REPORT FOR THIS PT AND IN RECLINER CHAIR AT BEDSIDE WITH NO S/S OF DISTRESS. ABEK TO VERBALIZE NEEDS. RESPIRATION ARE EVEN AND NON ALBORED AND LUNG SOUNDS ARE DIMINISHED. HEART RHYTHM IS REGULAR. ABDOMEN IS DISTENDED AND FIRM BUT PT DENIES PAIN OR DISCOMFORT. BOWEL SOUNDS ARE ACTIVE. PT HAS A 20G IN LFA THAT IS SALINE MAIRA AND FLUSHES WITH NO COMPLICATIONS. PT IS AMBULATORY WITH NO TROUBLE AMBUALTING. MD MADE AWARE OF ELEVATED BLOOP PRESSURES AND AWAITING ORDERS. PT WAS GIVEN LASIX EARLIER IN THE DAY AND NO COMPLICATIONS NOTED. CALL LIGHT IS WITHIN REACH. WILL CONTINUE TO OBSERVE
[2020-06-12] VITALS (17 sets, daily range): BP systolic 116–181; BP diastolic 45–89
--- NOTE | 2020-06-12 03:28 | NUR ---
pt in bed with eyes closed and able to verbalize needs. bp elevated and new orders noted from md. bp 174/88. medicated and prescibed and helpful. no complaints of pain or discomfort and no respiratory distress noted
[2020-06-12 05:15] LABS: HEMATOCRIT 51.4 % (39.0-50.0); HEMOGLOBIN 14.6 g/dl (14.0-18.0); IMMATURE GRANULOCYTES 0.6 % (0.0-5.0); MEAN CELL VOLUME 87.1 fL CALC (80.0-100.0); MEAN CORPUSCULAR HGB 24.7 pG CALC (26.0-32.0); MEAN CORPUSCULAR HGB CONC 28.4 g/dL CAL (32.0-36.0); NEUT# 6.92 thou/uL (1.82-7.42); RED BLOOD COUNT 5.9 mill/uL (4.70-6.10); RED CELL DISTRI WIDTH 15.6 % (11.5-15.5)
[2020-06-12 05:48] LABS: ALKALINE PHOSPHATASE 72 u/l (38-126); ANION GAP 10 (6-22 (CALC)); BILIRUBIN, TOTAL 0.8 mg/dL (0.0-1.4); BUN 14 mg/dL (9-20); BUN/CREATININE RATIO 18 (12-20 (CALC)); CARBON DIOXIDE 38 mmol/l (22-30); CHLORIDE 90 mmol/l (95-108); CREATININE 0.8 mg/dL (0.7-1.3); GFR > 60 ML/MIN (>=60 (CALC)); GFR FOR AFR.AMER. > 60 ML/MIN (>=60 (CALC)); MAGNESIUM 1.6 mg/dL (1.6-2.3); SGOT/AST 22 u/l (17-59); SODIUM 134 mmol/l (137-146); TOTAL PROTEIN 8.1 g/dL (6.3-8.2)
--- NOTE | 2020-06-12 06:26 | NUR ---
pt in bed with eyes closed. no s/s of distress noted. able to make needs known. skin warm to touch. Medications given and tolerated well. denies pain and discomfort. iv lasix given as prescribed. call light is within reach and bed in low position. will continue to observe
--- NOTE | 2020-06-12 08:05 | NUR ---
PATIENT IS SITTING IN THE SIDE OF THE BED. ASSESSMENT DONE. PATIENT IS A&O X3. PATIENT DENIES PAIN AT THSI TIME. LUNGS SOUND CLEAR/DIMINISHED. O2 AT 2L VIA NC . PATIENT STATED AT TIMES HE FEELS SOB AND 02 IS 90%. TELE IN PLACE. PATIENT DENIES ANY NEEDS AT THIS TIME. CALL LIGHT IN REACH.
--- NOTE | 2020-06-12 10:18 | NUR ---
PATIENT IS SITTING IN THE RECLINER DR. RUVALCABA AND CONSTANZA CHI IN ROOM. PATIENT IS NOT WAKING UP. CHECK PATIENT O2 IS READING 89 % 02 NOW AT 3L VIA NC. ORDER ABG .PATIENT IS WAKING UP NOW. O2 IS READING NOW 93-95%. PATIENT IS MORE WAKE. CALL LIGHT IN REACH.
--- NOTE | 2020-06-12 11:02 | NUR ---
PATIENT IS SITTING IN RECLINER. BREATH SOUND ARE LABORED. 02 AT 3L VIA NC. 20 LFA THAT APPEAR HEALTHY. TELE IN PLACE. PATIENT DENIES ANY NEEDS AT THIS TIME. CALL LIGHT IN REACH.
--- NOTE | 2020-06-12 11:30 | NUR ---
TRANSFER PATIENT TO ICU VIA BED WITH 02 AT 3L VIA NC TO ROOM 6. REPORT GIVEN TO NEELIMA TSAI.
--- NOTE | 2020-06-12 11:50 | NUR ---
PT ARRIVED VIA BED FROM MS ACCOMPANIED BY LENORA RN, PASCUAL AND JERE NGUYỄN. PT A&O X3. PT LETHARGIC IN APPEARANCE. O2 VIA NC @3L IN PLACE, DONNIE RT AT BEDSIDE. PT EDUCATED/EXPLAINED REASONING BEHIND BIPAP INTERVENTION/NEEDS. BIPAP PLACED BY RT. DIRECTOR OF GLOBAL MARKETING PLACED. ORIENTED PT TO ROOM. ASSESSMENT COMPLETED. DISCUSSED POC. CALL LIGHT IN REACH.
--- NOTE | 2020-06-12 15:00 | NUR ---
PT SITTING ON THE SIDE OF THE BED. BIPAP IN PLACE. CALL LIGHT WITHIN REACH.
--- NOTE | 2020-06-12 17:10 | NUR ---
PT SLEEPING IN BED. NO DISTRESS NOTED. BIPAP IN PLACE. CONTINUE TO MONITOR.
--- NOTE | 2020-06-12 17:36 | NUR ---
ORDER OBTAINED FOR APRESOLINE 10 MG IV Q6 PRN FOR SBP >160. ORDER WRITTEN AND FAXED TO [facility]
--- NOTE | 2020-06-12 18:00 | NUR ---
APRESOLINE 10 MG IV GIVEN FOR BP 192/87. WILL REASSESS.
--- NOTE | 2020-06-12 19:30 | NUR ---
sitting on side of bed. bipap cont. no resp diff. ekg monitor shows sinus rhythm hr 80. 3+ pitting edema bilat lower exts. #20 lfa saline lock. fluid restriction conts. voids per bsc. fall precautions cont. recliner placed in room.
--- NOTE | 2020-06-12 20:00 | NUR ---
up to recliner per self. snow well.
--- NOTE | 2020-06-12 22:00 | NUR ---
remains in recliner w feet elevated. bipap conts. teletypesetter monitor shows sinus rhythm hr 82.
[2020-06-13] VITALS (16 sets, daily range): BP systolic 115–173; BP diastolic 48–93
--- NOTE | 2020-06-13 00:01 | NUR ---
cont to sleep in recliner. nad. bipap conts. rolls baker shows sinus rhythm hr 76.
--- NOTE | 2020-06-13 01:45 | NUR ---
stood to void into bsc. nad. bipap conts. cardiac monmitor shows sinus rhythm hr 72.
--- NOTE | 2020-06-13 04:00 | NUR ---
eyes closed. nad. bipap conts. anatomic pathology assistant shows sinus rhythm.
--- NOTE | 2020-06-13 05:54 | NUR ---
remains in recliner. bipap conts. panel monitor shows sinus rhythm hr 67.
--- NOTE | 2020-06-13 06:42 | NUR ---
xray here. pcxr obtained.
--- NOTE | 2020-06-13 07:19 | NUR ---
PT REPORT RECEIVED, PT SITTING UP IN RECLINER, ALERT/ORIENTED X3, SWITCHED TO N/C TO EAT BREAKFAST SATS 97%
--- NOTE | 2020-06-13 07:21 | NUR ---
COLBY STANDBY. PT. ON [facility]
--- NOTE | 2020-06-13 09:45 | NUR ---
COVID TEST OBTAINED AND SENT TO LAB
--- NOTE | 2020-06-13 10:26 | NUR ---
PT REMAINS SITTING UP IN RECLINER SATS STABLE AT99% ON 3 LITRES
--- NOTE | 2020-06-13 11:16 | NUR ---
WITH O2 DOWN TO 3 L/NC 97%
--- NOTE | 2020-06-13 16:13 | NUR ---
PT RESTING IN BED AT THIS TIME. PT GETS UP ON OWN TO URINATE, SATS ON 3 LITRES AT THIS TIME AND O2 IS STAYING IN THE LOW TO MID 90'S.
--- NOTE | 2020-06-13 16:43 | NUR ---
DR. RUVALCABA IS GIVING ORDERS TO SEND PT TO [facility]. ADVISED PT AND PT VOICES UNDERSTANDING.
--- NOTE | 2020-06-13 17:24 | NUR ---
CALLED [facility] FOR REPORT BUT NURSE IS WITH A PT ON [facility]PONSE AND WILL RETURN CALL WHEN SHE IS DONE
--- NOTE | 2020-06-13 17:56 | NUR ---
PT ARRIVED VIA WC IN STABLE CONDITION TO FL ROOM 269. O2 VIA NC @3L NC. PT ORIENTED TO ROOM. CALL LIGHT WITHIN REACH.
--- NOTE | 2020-06-13 20:51 | NUR ---
PT MEDICATED AND ASSESSMENT COMPLETED AT THIS TIME. ICU NURSE CAME TO DISCUSS POC WITH MYSELF AND PT AT THIS TIME. I INFORMED THE PT AT THIS TIME THAT I WILL BE WAKING HIM UP THROUGHOUT THE NIGHT TO ASSESS ALERTNESS AND MENTAL STATUS, HE VERBALIZED UNDERSTANDING. PT LOCX4 AT THIS TIME. SITTING ON THE SIDE OF THE BED. HE HAS BEEN TALKING ON THE PHONE, NO SOB OR LABORED BREATHING AT THIS TIME.
--- NOTE | 2020-06-13 21:00 | NUR ---
ATTEMPT TO NOTIFY RESP THERAPIST THAT PT IS OFF BIPAP AND IN MED SURG, NO LONGER IN NEED OF BIPAP ORDER. UNABLE TO MAKE CONTACT AT THIS TIME. RT IS IN WITH PT IN ANOTHER UNIT AT THIS TIME.
--- NOTE | 2020-06-13 22:48 | NUR ---
ATTEMPTED TO NOTIFY RESPIRATORY THAT PT IS NOT ON BIPAP FOR CHARGES ORDERED BY RESP. UNABLE TO GET IN TOUCH WITH RESP THERAPIST, IN ED. WILL FOLLOW-UP AGAIN TO CLARIFY ORDERS.
--- NOTE | 2020-06-13 23:30 | NUR ---
PT WAS SLEEING, AWOKE TO OUR VOICES VERY EASILY AND APPEARED LOCX3. NO S/O CONFUSION OR DISORIENTATION. OXYGEN NC WAS OFF SAT LEVELS 88%, NC REPLACED, PT QUICKLY UP TO 95% ON 3L
[2020-06-14] VITALS (7 sets, daily range): BP systolic 123–173; BP diastolic 59–90
--- NOTE | 2020-06-14 02:05 | NUR ---
PT IS SITTING ON SIDE OF THE BED APPEARS TO BE SLEEPING SITTING UP. NO S/O DISTRESS NOTED. PT AWOKE EASILY TO MY VOICE AND APPEARS LOC. WHEN NEEDS OFFERED, HE ASKED FOR ADDITIONAL ICEWATER/REPLENISHED. OXYGEN NC IS ON IN PLACE, 96% ON 2L.
--- NOTE | 2020-06-14 03:20 | NUR ---
PT SLEEPING SITTING UPRIGHT ON THE SIDE OF THE BED. NO S/O DISTRESS NOTED. V/S ASSESSED, HE ANSWERED MY QUESTIONS CLEARLY AND DENIED ANY OTHER NEEDS AT THIS ITME. CALL LIGHT IS W/IN REACH AND HE HAS BEEN INSTRUCTED TO CALL NEEDS ARISE. 98% O2 SAT ON 2LNC.
--- NOTE | 2020-06-14 04:30 | NUR ---
PT LAYING DOWN IN BED SLEEPING, NO S/O DISTRESS NOTED AT THIS TIME. AWOKE TO MY VOICE QUICKLY AND DENIES ANY NEEDS.
[2020-06-14 05:56] LABS: ALBUMIN 3.6 g/dL (3.2-5.0); ALKALINE PHOSPHATASE 64 u/l (38-126); BILIRUBIN, TOTAL 0.8 mg/dL (0.0-1.4); BUN 25 mg/dL (9-20); BUN/CREATININE RATIO 37 (12-20 (CALC)); CHLORIDE 87 mmol/l (95-108); CREATININE 0.7 mg/dL (0.7-1.3); GFR > 60 ML/MIN (>=60 (CALC)); GFR FOR AFR.AMER. > 60 ML/MIN (>=60 (CALC)); MAGNESIUM 1.7 mg/dL (1.6-2.3); POTASSIUM 3.6 mmol/l (3.5-5.1); SGOT/AST 18 u/l (17-59); SODIUM 132 mmol/l (137-146); TOTAL PROTEIN 7.5 g/dL (6.3-8.2)
[2020-06-14 06:03] LABS: ANION GAP 7 (6-22 (CALC))
[2020-06-14 06:09] LABS: HEMATOCRIT 46.8 % (39.0-50.0); HEMOGLOBIN 13.6 g/dl (14.0-18.0); IMMATURE GRANULOCYTES 0.4 % (0.0-5.0); MEAN CELL VOLUME 85.1 fL CALC (80.0-100.0); MEAN CORPUSCULAR HGB 24.7 pG CALC (26.0-32.0); MEAN CORPUSCULAR HGB CONC 29.1 g/dL CAL (32.0-36.0); NEUT# 6.13 thou/uL (1.82-7.42); RED BLOOD COUNT 5.5 mill/uL (4.70-6.10); RED CELL DISTRI WIDTH 15.3 % (11.5-15.5)
--- NOTE | 2020-06-14 06:19 | NUR ---
PT MEDICATED ORDERS PROVIDE. HE IS LAYING IN LOW FOWLERS POSITION. AWOKE EASILY TO MY VOICE. REPORTS FEELING OKAY. NO S/O DISTRESS, DENIES ANY NEEDS. CALL LIGHT AT BEDSIDE.
[2020-06-14 06:32] LABS: CARBON DIOXIDE 42 mmol/l (22-30)
--- NOTE | 2020-06-14 07:30 | NUR ---
RECIEVED REPORT FROM NEELIMA COLE
--- NOTE | 2020-06-14 08:08 | NUR ---
PT SITTING IN CHAIR UPON ENTERING ROOM. INTRODUCED SELF TO PT AND DISCUSSED POC. PT IS A/O X3. ASSESSMENT AND VITALS COMPLETED. BP 163/72, HR 77, O2 98% ON 2L NC. REPSIRATIONS ARE EVEN AND UNLABORED. HEART RHYTHM NORMAL WITH TELE IN PLACE, SR PER ER MONITORING. BOWEL SOUNDS ARE ACTIVE. RADIAL AND PEDAL PULSES STRONG. #20G IN LFA FLUSHED, SITE APPEARS HEALTHY AND PATENT. SKIN IS WAMR AND INTACT. 3+ EDMEMA NOTED TO BLE. RADIAL PULSES STRONG. PEDAL PUSLES WEAK. PT DENEIS OF ANY PAINS OR DISCOMFORTS. ALL SAFETY PRECAUTIONS ARE IN PLACE WITH CALL LIGHT IN REACH. WILL CONTINUE TO MONITOR.
--- NOTE | 2020-06-14 11:01 | NUR ---
DR BUTT AT BEDSIDE
--- NOTE | 2020-06-14 12:00 | NUR ---
PT SITTING UP IN CHAIR. RESPIRATIONS ARE EVEN AND UNLABORED ON 2L NC. TELE MONITORING IN PLACE. PT DENIES OF ANY PAINS OR DISCOMFORTS. ALL SAFETY PRECAUTIONS PRECAUTIONS ARE IN PLACE WITH CALL LIGHT IN REACH. WILL CONITNUE TO MONITOR.
--- NOTE | 2020-06-14 16:14 | NUR ---
PT RESTING UP IN CHAIR. RESPIRATIONS ARE EVEN AND UNLABORED ON 2L NC. TELE MONITORING IN PLACE. PT DENIES OF ANY PAINS OR DISCOMFORTS. ALL SAFETY PRECAUTIONS ARE IN PLACE WITH CALL LIGHT IN REACH. WILL CONTINUE TO MONITOR.
--- NOTE | 2020-06-14 20:00 | NUR ---
PATIENT SITTING UP IN THE RECLINER AT THIS TIME-AWAKE ALERT AND ORIENTEDX3. PATIENT WITH NO COMPLAINTS AT THIS TIME. PATIENT WITH TELE MONITOR IN PLACE. SALINE LOCK TO LEFT FOREARM INTACT. O2 VIA NASAL CANNULA IN PLACE. O2 SAT AT THIS TIME IS 97%.SAFETY PRECAUTIONS REINFORCED. CALL LIGHT IN REACH. WILL CONT TO MONITOR.
--- NOTE | 2020-06-14 21:00 | NUR ---
PATIENT WITH ACCU-CHECK OF 154-MEDICATED WITH HUMALOG 1UNIT SQ PER SLIDING SCALE COVERAGE PROTOCOL. PROVIDED WITH HS SNACK. CALL LIGHT IN REACH. WILL CONT TO MONITOR.
--- NOTE | 2020-06-14 23:52 | NUR ---
PATIENT WITH ACCU-CHECK OF 154-MEDICATED WITH HUMALOG 1UNIT SQ PER SLIDING SCALE COVERAGE SCALE. PROVIDED WITH HS SNACK. CALL LIGHT IN REACH. WILL CONT TO MONITOR.
[2020-06-15] VITALS: BP 156/80
--- NOTE | 2020-06-15 | NUR ---
PATIENT IS STILL SITTING UP IN RECLINER WITH O2 VIA NASAL CANNULA IN PLACE. WATCHING TV. TELE MONITOR IN PLACE. NO COMPLAINTS AT THIS TIME. CALL LIGHT IN REACH. WILL CONT TO MONITOR.
[2020-06-15 04:04] VITALS: BP 170/97
--- NOTE | 2020-06-15 04:48 | NUR ---
PATIENT SITTING ON THE SIDE OF THE BED WITH O2 VIA NASAL CANNULA IN PLACE. BP IS 170/97, HR-92. MEDICATED WITH APRESOLINE 10MG IVP VIA LEFT FOREARM IV SITE. SITE REMAINS HEALTHY. CONT TO HAVE GENERALIZED EDEMA. VOIDED 1000CC OF CHRISSY URINE IN BR. SAFETY PRECAUTIONS REINFORCED. CALL LIGHT IN REACH. WILL CONT TO MONITOR.
--- NOTE | 2020-06-15 07:32 | NUR ---
RECIEVED REPORT FROM NEELIMA CONCEPCION.
[2020-06-15 07:36] VITALS: BP 141/87
[2020-06-15 09:24] LABS: HEMATOCRIT 49.4 % (39.0-50.0); HEMOGLOBIN 14.5 g/dl (14.0-18.0); IMMATURE GRANULOCYTES 0.3 % (0.0-5.0); MEAN CORPUSCULAR HGB 24.7 pG CALC (26.0-32.0); MEAN CORPUSCULAR HGB CONC 29.4 g/dL CAL (32.0-36.0); NEUT# 5.26 thou/uL (1.82-7.42); RED BLOOD COUNT 5.88 mill/uL (4.70-6.10); RED CELL DISTRI WIDTH 15.7 % (11.5-15.5)
[2020-06-15 09:41] LABS: ANION GAP 10 (6-22 (CALC)); BUN 17 mg/dL (9-20); BUN/CREATININE RATIO 25 (12-20 (CALC)); CARBON DIOXIDE 39 mmol/l (22-30); CHLORIDE 88 mmol/l (95-108); CREATININE 0.7 mg/dL (0.7-1.3); GFR > 60 ML/MIN (>=60 (CALC)); GFR FOR AFR.AMER. > 60 ML/MIN (>=60 (CALC)); POTASSIUM 3.4 mmol/l (3.5-5.1); SODIUM 134 mmol/l (137-146)
--- NOTE | 2020-06-15 10:40 | NUR ---
DR BUTT AT BEDSIDE
[2020-06-15 11:48] VITALS: BP 127/75
--- NOTE | 2020-06-15 12:07 | NUR ---
PT SITTING UP ON CHAIR. RESPIRATIONS ARE EVEN AND UNLABORED ON ROOM AIR. 2L NC AT BEDSIDE PRN. PT DENIES OF ANY PAINS OR DISCOMFORTS AT THIS TIME. TELE MONITORING REMAINS IN PLACE. ALL SAFETY PRECAUTIONS ARE IN PLACE WITH CALL LIGHT IN REACH. WILL CONTINUE TO MONITOR.
--- NOTE | 2020-06-15 13:58 | NUR ---
ABORIGINAL EDUCATION WORKER COORDINATOR AT BEDSIDE
--- NOTE | 2020-06-15 14:33 | NUR ---
WALK TEST COMPLETED. O2 SAT 94% ON ROOM AIR RESTING. O2 SAT DESAT TO 86% WHILE WALKING. O2 SAT 94% WHILE ON ROOM AIR AFTER RESTING.
[2020-06-15 15:45] VITALS: BP 153/67
--- NOTE | 2020-06-15 16:32 | NUR ---
PT SITTING UP IN CHAIR. REPSIRATIONS ARE EVEN AND UNLABORED ON ROOM. TELE MONITORING IN PLACE. PT DENIES OF ANY PAINS OR DISCOMFORTS AT TTHIS TIME. PT NOTFIED OF POSSIBLE DISCHARGE. PT VERBA;IZED UNDERSTANDING. HOME OXYGEN DELIVERED AND AT BEDSIDE. ALL SAFETY PRECAUTIONS ARE IN PLACE. WILL CONTINUE TO MONITOR.
[2020-06-15] MEDS ORDERED: LOSARTAN POTAS100 MG PO (16:45)
[2020-06-15] MEDS ORDERED: KLOR-CON M2020 MEQ PO (16:45)
[2020-06-15] MEDS ORDERED: LASIX 40 MG TAB40 MG PO (16:46)
[2020-06-15] MEDS ORDERED: COREG25 MG PO (16:46)
--- NOTE | 2020-06-15 17:57 | NUR ---
PT EDUCATED ON DISCHARGE INSTRUCTIONS AND NEW MEDICATIONS. PT VERBALIZED UNDERSTANDING.PT EDUCATED ON HOME O2 AND NEED TO CALL [facility] ONCE ARRIVING HOME. PT VERBALIZED UNDERSTANDING. IV REMOVED WITH CATHATER STILL INTACT. TELE MONITORING REMOVED, ER NOTIFIED. WAITING FOR TRANSPORTATION. WILL CONTINUE TO MONITOR
--- NOTE | 2020-06-15 18:13 | NUR ---
Discharge instructions given. Patient verbalizes understanding of same. Discharged in stable condition via Wheelchair to Home with staff. All belongings sent with pt. PT DISCHARGED HOME IN STABLE CONDITION VIA WHEELCHAIR IN STABLE CONDITION WITH ALL BELONGINGS, DISCHARGE INSTRUCTIONS AND HOME OXYGEN. SCRIPTS PRINTED.
== END 2020-06-15 18:13 | disposition home or self-care (01) | DRG 291 ==
LOC: MS2 10:37 → ICU 06-12 11:50 → MS2 06-13 17:56
PROVIDERS: Nurse Practitioner; ADMIT Internal Medicine; ATTEND Internal Medicine
PROC: 5A09457 Assistance with Respiratory Ventilation, 24-96 Consecutive Hours, Continuous Positive Airway Pressure (ICD-10-PCS; principal; 2020-06-12)
DX: I11.0 Hypertensive heart disease with heart failure (principal); I50.31 Acute diastolic (congestive) heart failure; J96.01 Acute respiratory failure with hypoxia; J96.02 Acute respiratory failure with hypercapnia; Z68.44 Body mass index [BMI] 60.0-69.9, adult; E66.2 Morbid (severe) obesity with alveolar hypoventilation; E87.2 Acidosis; E11.9 Type 2 diabetes mellitus without complications; G47.10 Hypersomnia, unspecified; Z79.84 Long term (current) use of oral hypoglycemic drugs; Z20.822 Contact with and (suspected) exposure to COVID-19

== ENCOUNTER 2021-05-12 16:30 | Emergency (ER) | payer OTHER ==
[~2021-05-12] VITALS: Ht 165.1 cm; Wt 188.0 kg
[~2021-05-12 16:30] MED LIST changes: +COREG25 MG PO; +FLONASE AL50 MCG/AC1; +JARDIANCE25 MG PO; +KLOR-CON M2020 MEQ PO; +LASIX 40 MG TAB40 MG PO; +LOSARTAN POTAS100 MG PO; +NYSTATI1 TOP; +VOLTAREN1%GEL TOP; +ZYRTEC10 MG PO
[2021-05-12 18:23] LABS: HEMATOCRIT 46.4 % (39.0-50.0); IMMATURE GRANULOCYTES 0.2 % (0.0-5.0); MEAN CORPUSCULAR HGB 26.9 pG CALC (26.0-32.0); MEAN CORPUSCULAR HGB CONC 30.2 g/dL CAL (32.0-36.0); NEUT# 2.54 thou/uL (1.82-7.42); RED BLOOD COUNT 5.2 mill/uL (4.70-6.10); RED CELL DISTRI WIDTH 14.6 % (11.5-15.5)
[2021-05-12 18:25] LABS: MEAN CELL VOLUME 89.2 fL CALC (80.0-100.0)
[2021-05-12 18:39] LABS: ALBUMIN 3.8 g/dL (3.2-5.0); ALKALINE PHOSPHATASE 84 u/l (38-126); BILIRUBIN, TOTAL 0.5 mg/dL (0.0-1.4); BUN 14 mg/dL (9-20); BUN/CREATININE RATIO 14 (12-20 (CALC)); CARBON DIOXIDE 33 mmol/l (22-30); GFR > 60 ML/MIN (>=60 (CALC)); GFR FOR AFR.AMER. > 60 ML/MIN (>=60 (CALC)); POTASSIUM 3.9 mmol/l (3.5-5.1); SODIUM 140 mmol/l (137-146); TOTAL PROTEIN 8.3 g/dL (6.3-8.2)
[2021-05-12 18:47] LABS: ANION GAP 11 (6-22 (CALC)); CHLORIDE 100 mmol/l (95-108); SGOT/AST 53 u/l (17-59)
[2021-05-12 19:52] VITALS: BP 155/78
== END 2021-05-12 20:05 | disposition home or self-care (01) | DRG 179 ==
LOC: ED 16:30
PROVIDERS: Emergency Medicine
DX: U07.1 COVID-19 (principal); I10 Essential (primary) hypertension; E11.9 Type 2 diabetes mellitus without complications; Z87.01 Personal history of pneumonia (recurrent); Z79.84 Long term (current) use of oral hypoglycemic drugs